=== PATIENT | male | born 1950 | race Caucasian/White ===

== ENCOUNTER 2023-06-05 08:13 | Outpatient (REF) | payer MEDICARE, SELFPAY ==
[2023-06-05 11:51] LABS: Cholesterol 190 mg/dL (<200); HDL Cholesterol 65 mg/dL (>40); LDL Cholesterol Calculated 107 mg/dL (<100); Triglycerides 90 mg/dL (<150)
[2023-06-05 13:37] LABS: Reflex LDLD? No
[2023-06-06 05:22] LABS: ~HepC Num1 0.13 S/CO (0.00-0.79); ~Hepatitis C Antibody Nonreactive (Nonreactive)
== END 2023-06-05 08:14 | disposition home or self-care (01) ==
LOC: HO.HHCL 08:13
PROVIDERS: Visit Provider Internal Medicine
DX: Z00.00 Encounter for general adult medical examination without abnormal findings (principal); I10 Essential (primary) hypertension
CPT/HCPCS: 36415; 80061; 86803

== ENCOUNTER 2024-01-23 08:35 | Outpatient (REF) | payer MEDICARE, SELFPAY ==
[2024-01-23 12:12] LABS: Estimated Average Glucose 126 mg/dL
[2024-01-23 12:20] LABS: Anion Gap 12 (12-20); Blood Urea Nitrogen 17 mg/dL (9-16); Calcium 9.9 mg/dL (8.4-10.2); Carbon Dioxide 27 mmol/L (22-29); Chloride 106 mmol/L (96-108); Cholesterol 215 mg/dL (<200); Estimated Glomerular Filt Rate > 60; Glucose Random 97 mg/dL (60-115); HDL Cholesterol 73 mg/dL (>40); LDL Cholesterol Calculated 122 mg/dL (<100); Potassium 4.2 mmol/L (3.3-5.1); Sodium 141 mmol/L (135-145); Triglycerides 102 mg/dL (<150)
== END 2024-01-23 08:36 | disposition home or self-care (01) ==
LOC: HO.HHCL 08:35
PROVIDERS: Visit Provider Pharmacist
DX: R73.03 Prediabetes (principal); E78.2 Mixed hyperlipidemia; I10 Essential (primary) hypertension
CPT/HCPCS: 36415; 80048; 80061; 83036

== ENCOUNTER 2024-10-08 09:44 | Outpatient (REF) | payer MEDICARE, SELFPAY ==
--- NOTE | ~2024-10-08 | XR_ITS ---
EXAMINATION: XR SHOULDER 2 OR MORE VIEWS LEFT HISTORY: left shoulder pain COMPARISON: There are no prior studies available for comparison. FINDINGS: Four views of the left shoulder are submitted. There is a curvilinear subchondral lucency in the humeral head with surrounding sclerosis, suspicious for avascular necrosis. There is no evidence of articular collapse. There is no fracture or dislocation. The glenohumeral and acromioclavicular joint spaces are preserved. The soft tissues are unremarkable. XR/XR shoulder LT min 2V IMPRESSION: No new suspicious for avascular necrosis of the left humeral head. This could be confirmed with MRI if indicated. Electronically signed by: Amilcar Jin MD 10/08/2024 11:44 AM MIRELA
--- NOTE | ~2024-10-08 | XR_ITS ---
EXAMINATION: XR WRIST 3 OR MORE VIEWS LEFT HISTORY: left wrist pain and swelling COMPARISON: Correlation is made with plain films of the left hand dated 12/11/2014. FINDINGS: Four views of the left wrist are submitted. Osseous mineralization is normal. There is no fracture or dislocation. The joint spaces are preserved. The soft tissues are unremarkable. XR/XR wrist LT min 3V IMPRESSION: Unremarkable examination of the left wrist. Electronically signed by: Amilcar Jin MD 10/08/2024 10:55 AM MIRELA
--- OUTSIDE RECORDS SUMMARY | 2024-10-08 10:44 | XMS_ITS | Encounter Summary ---
Author Organization [employer] [facility] Address [address] [place] [address] [address]t [place] [address] Care Team Providers Care Communications Associate Name Role Phone Don Cardoso MD Primary Care Provide r Encounter Details Date Type Department Care Team (Late st Contact Info) Description 08/19/2022 Orders Only [facility] MED[facility]INE [address] [place] [address] Don aCrdoso MD [address] [place] [address] Avascular necrosis of bones of both hips (CMS/HCC) (Primary Dx) Social History Tobacco Use Types Packs/Day Years Used Date Smoking Tobacco: Never Assessed Sex and Gender Information Value Date Recorded Sex Assigned at Male 07/18/2022 10:15 AM EDT Legal Sex Male 10:15 AM EDT Gender Identity Male 07/18/2022 10:15 AM EDT Sexual Orientation Straight 07/18/2022 10 :15 AM EDT documented as of this encounter Plan of Treatment Not on file documented as of this encounter Visit Diagnoses Diagnosis Avascular necrosis of bones of both hips (CMS/HCC)- Primary documented in this encounter Care Teams Communications Associate Relationship Specialty Start Date End Date Don Cardoso MD [address] [place] [address] PCP - General Internal Medicine 09/23/14 documented as of this encounter
--- OUTSIDE RECORDS SUMMARY | 2024-10-08 10:44 | XMS_ITS | Encounter Summary ---
Author Organization [email or web address] Address [address] [facility] 7t [place] [address] Care Team Providers Care Psychological Operations Officer Name Role Phone Don Cardoso MD Primary Care Provide r Reason for Visit * Reason Comments Pre-visit Planning SDOH screening was c ompleted on 10/26/2023 Encounter Details Date Type Department Care Team ([facility] st Contact Info) Description 09/26/2024 Patient Outreach [facility] MED[facility]INE [address] [place] [address] Don Cardoso MD [address] [place] [address] Pre-visit Planning (SDOH screening was completed on 10/26/2023) Social History Tobacco Use Types Packs/Day Years Used Date Smoking Tobacco: Never Passive Smoke Exposure: Never Smokeless Tobacco: Never Alcohol Use Standard Drinks/Week Comments Never 0 (1 standard drink = 0.6 oz pur e alcohol) Depression Answer Date Recorded Patient Health Questionnaire-9 Score 0 10/26/2023 Patient Health Questionnaire-9 Score 0 10/26/2023 Last PHQ-9: Questionnaire Data Not on file 0 10/26/2023 Housing Stability Answer Date Recorded What is your housing situation today? I have re abraham 10/26/[address] you li ve. Do you have problems with any of the following? None of the above 10/26/2023 Food Insecurity Answer Date Recorded Within the past 12 months, y ou worried that your food would run out before you got money to buy more: Never True 10/26/2023 Within the past 12 months,th e food you bought just didn't last and you didn't have enough money to get more: Never True 04/2024 Transportation Answer Date Recorded In the past 12 months, has l ack of transportation kept you from medical appts, meetings, work or from getting things needed for daily living? No 10/26/2023 Utilities Answer Date Recorded In the past 12 months, has t he electric, gas, oil or water company threatened to shut off services in your home? No 10/26/2023 Depression Answer Date Recorded Patient Health Questionnaire-2 Score 0 10/26/2023 Internet Access Answer Date Recorded Internet Access Q1 No 08/23/2024 Internet Access Q2 I do not want or need it 02/2024 Sex and Gender Information Value Date Recorded Sex Assigned at Male 07/18/2022 10:15 AM EDT Legal Sex Male 10:15 AM EDT Gender Identity Male 07/18/2022 10:15 AM EDT Sexual Orientation Straight 07/18/2022 10 :15 AM EDT documented as of this encounter Progress Notes * Yenny Singleton - 09/26/2024 12:29 PM EST GLADYS Drummond placed successful outbound call to patient for pre-visit planning. Patient name and confirmed. Patient confirms appt date and time, and has transportation arrangements. Biggest concern for appointment at this time is no concerns. Patient advised to bring to appointment a photo id and insurance card. Appropriate screenings completed in anticipation of appointment. documented in this encounter Plan of Treatment Not on file documented as of this encounter Goals Goal Patient Goal Type Associated Problems Recent Progress Patient-Stated? Author Blood Pressure < 140/90 Blood Pressure Hypertension 140/82(2024 9:24 AM EST) No Mohsen Edwards, PharmD documented as of this encounter Visit Diagnoses Not on filedocumented in this encounter Additional Health Concerns Assessment Noted Time PHQ-9 Depression Total Score: 0 10/26/19 24 9:35 AM EST documented as of this encounter Care Teams Psychological Operations Officer Relationship Specialty Start Date End Date Don Cardoso MD [address] [place] [phone] PCP - General Internal Medicine 09/23/14 documented as of this encounter
--- OUTSIDE RECORDS SUMMARY | 2024-10-08 10:44 | XMS_ITS | Encounter Summary ---
Author Organization [employer] Address [address] [facility] 7t [place] [address] Care Team Providers Care Measurement Technician Name Role Phone Don Cardoso MD Primary Care Provide r Encounter Details Date Type Department Care Team (Latest Contact Info) Description 10/08/2024 Travel Social History Tobacco Use Types Packs/Day Years Used Date Smoking Tobacco: Never Passive Smoke Exposure: Never Smokeless Tobacco: Never Alcohol Use Standard Drinks/Week Comments Never 0 (1 standard drink = 0.6 oz pur e alcohol) Depression Answer Date Recorded Patient Health Questionnaire-9 Score 1 10/08/2024 Patient Health Questionnaire-9 Score 1 10/08/2024 Last PHQ-9: Questionnaire Data Not on file 0 10/08/2024 Housing Stability Answer Date Recorded What is [...] Date Recorded Patient Health Questionnaire-2 Score 0 10/08/2024 Internet Access Answer Date Recorded Internet Access Q1 Yes 10/08/2024 Internet Access Q2 I do not want or need it 09/19 Sex and Gender Information Value Date Recorded [...] 140/82(2024 9:24 AM EST) No Mohsen Edwards, VondaD documented as of this encounter Visit Diagnoses Not on filedocumented in this encounter Additional Health Concerns Assessment Noted Time PHQ-9 Depression Total Score: 1 10/08/19 25 9:12 AM EST documented as of this encounter Care Teams Measurement Technician Relationship Specialty Start Date End Date Don Cardoso MD [address] [place] [address] PCP - General Internal Medicine 09/23/14 documented as of this encounter
--- OUTSIDE RECORDS SUMMARY | 2024-10-08 10:44 | XMS_ITS | Encounter Summary ---
Author Organization [employer] [facility] Address [address] [place] [address] 7t [place] [address] Care Team Providers Care Manager Specialty Name Role Phone Don Cardoso MD Primary Care Provide r Reason for Referral * Consultation (Routine) - Pending Review Specialty Diagnoses / Procedures Referred By Contalexander t Referred To Contact Physical Therapy Diagnoses Left wrist pain Acute pain of left shoulder Don Cardoso MD [address] [place] [address] Phone: tel: fax: Referral ID Status Reason Start Date Expiration Date Visits Requested Visits Authorized [id number] Pending Review Specialty Services Required 10/08/2024 10/08/2025 1 1 Reason for Visit * Reason Comments Hypertension Encounter Details Date Type Department Care Team (Late st Contact Info) Description 10/08/2024 9:15 AM EST Office Visit [facility] MEDICINE [address] [place], [place] [phone] Don Cardoso MD [address] [place], [place] [phone] Primary hypertension (Primary Dx); Mixed hyperlipidemia; Left wrist pain; Acute pain of left shoulder; Avascular necrosis of bone of hip, unspecified laterality (CMS/HCC); Preventative health care Social History Tobacco Use Types Packs/Day Years [...] AM EDT documented as of this encounter Last Filed Vital Signs Vital Sign Reading Time Taken Comments Blood Pressure 140/82 10/08/2024 9:24 AM EST Pulse 75 10/08/2024 9:07 AM EST Temperature 36.2 ??C (97.1 ??F) 10/08/2024 9:07 AM ES T Respiratory Rate 20 10/08/2024 9:07 AM EST Oxygen Saturation 96% 10/08/2024 9:07 AM EST Inhaled Oxygen Concentration - - Weight 103 kg (227 lb 12.8 oz) 10/08/2024 9:07 A M EST Height 170.2 cm (5' 7 ) 10/08/2024 9:07 AM EST Body Mass Index 35.68 10/08/2024 9:07 AM EST documented in this encounter Progress Notes * Don Naik MD - 10/08/2024 9:15 AM EST SUBJECTIVE Elbert Son is a 74 y.o. male who presents for Hypertension. Hypertension This is a chronic problem. Pertinent negatives include no chest pain, headaches or shortness of breath. Shoulder Pain The pain is present in the left shoulder. This is a new problem. The current episode started 1 to 4weeks ago. There has been no history of extremity trauma. The problem occurs intermittently. The problem has been gradually worsening. The pain is at a severity of 5/10. Pertinent negatives include no fever. The symptoms are aggravated by activity. He has tried nothing for the symptoms. Wrist Pain The pain is present in the left wrist. This is a new problem. The current episode started 1 to 4 weeks ago. The problem occurs intermittently. The pain is at a severity of 4/10. Pertinent negatives include no fever. The symptoms are aggravated by activity. He has tried nothing for the symptoms. Review of Systems Constitutional: Negative for fever. HENT: Negative for sore throat. Respiratory: Negative for cough and shortness of breath. Cardiovascular: Negative for chest pain. Gastrointestinal: Negative for abdominal pain. Neurological: Negative for headaches. No Known Allergies OBJECTIVE Vitals: 10/08/24 0907 10/08/24 0924 BP: (!) 180/88 140/82 BP Location: Left arm Left arm Patient Position: Sitting Sitting BP Cuff Size: Adult Pulse: 75 Resp: 20 Temp: 97.1 ??F (36.2 ??C) TempSrc: Temporal SpO2: 96% Weight: 227 lb 12.8 oz (103 kg) Height: 5' 7 (1.702 m) Physical Exam Vitals reviewed. Constitutional: Appearance: Normal appearance. HENT: Head: Normocephalic and atraumatic. Right Ear: External ear normal. Left Ear: External ear normal. Nose: Nose normal. Mouth/Throat: Mouth: Mucous membranes are moist. Eyes: Conjunctiva/sclera: Conjunctivae normal. Cardiovascular: Rate and Rhythm: Normal rate and regular rhythm. Pulmonary: Effort: Pulmonary effort is normal. Breath sounds: Normal breath sounds. Musculoskeletal: Left shoulder: Tenderness present. No swelling or deformity. Decreased range of motion. Left wrist: Swelling and tenderness present. Decreased range of motion. Skin: General: Skin is warm. Neurological: Mental Status: He is alert. Mental status is at baseline. Assessment/Plan Problem List Items Addressed This Visit Hypertension - Primary Patient here for a follow up BP controlled He is on a regimen of: Enalapril 20 mg po BID, Norvasc 7.5 mg po daily (pt did not tolerated the 10mg due to leg edema) and Toprol XL 25 mg po daily Plan: Continue current regimen, discussed need to loose weight f/u 4 months Most recent electrolytes, Bun and Creatinine done on: 01/23/2024 were wnl. patient advised to adhere to a low sodium diet, encouraged about medication compliance, counseled about weight loss. Relevant Orders Comprehensive Metabolic Panel Mixed hyperlipidemia Pt here for a routine f/u visit Most recent lipid profile from: Lab Results Component Value Date TRIG 102 01/23/2024 TRIG 90 06/05/2023 CHOL 215 (H) 01/23/2024 CHOL 190 06/05/2023 LDLCHOLCAL 122 (H) 01/23/2024 LDLCHOLCAL 107 (H) 06/05/2023 HDL 73 01/23/2024 HDL 65 06/05/2023 Currently not on a regimen. In the past he was on Lipitor but this was Discontinued due to elevatedLFT'S. Previously he had been able to maintain adequate levels on DIET alone. Pt would like to continue with diet alone. For now will continue with diet alone. advised to try to adhere to a low cholesterol diet, counseled and educated about diet and exercise,Patient encouraged to come up with a personal goal for weight loss. Relevant Orders Lipid Panel, Standard Left wrist pain New onset , in the absence of any trauma On exam, there is decreased ROM on active movement Mild tenderness to palpation Plan: Pain control, Plain films, PT eval Follow up if no improvement Relevant Orders XR Wrist 3+ Views Left CBC auto differential Referral to Physical Therapy Acute pain of left shoulder New onset , in the absence of any trauma On exam, there is decreased ROM on active movement Mild tenderness AC joint Plan: Pain control, Plain films, PT eval Follow up if no improvement Relevant Orders XR Shoulder 2+ Views Left Referral to Physical Therapy Avascular necrosis of bone of hip (CMS/HCC) Pt was last seen by his drug safety specialist Dr Bernstein on July 12 2012. 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 We once again discussed the importance of posterior hip dislocation precautions and the importance of antibiotic prophylaxis should hehave any dental work done or any invasive procedure. Preventative health care PSA 2021: Normal. Will repeat Colonoscopy: Normal : 07/09/2010 Dr Ag Repeat 03/31/2016 for Hx of Tubular adenomas Normal again Dr Ag recommended 10 yr follow up, from now on Relevant Orders PSA, Screen documented in this encounter Miscellaneous Notes * Assessment & Plan Note - Don Naik MD - 10/08/2024 10:11 AM EST Associated Problem(s): Left wrist pain New onset , in the absence of any trauma On exam, there is decreased ROM on active movement Mild tenderness to palpation Plan: Pain control, Plain films, PT eval Follow up if no improvement * Assessment & Plan Note - Don Naik MD - 10/08/2024 10:11 AM EST Associated Problem(s): Acute pain of left shoulder New onset , in the absence of any trauma On exam, there is decreased ROM on active movement Mild tenderness AC joint Plan: Pain control, Plain films, PT eval Follow up if no improvement * Assessment & Plan Note - Don Naik MD - 10/08/2024 9:26 AM EST Associated Problem(s): Preventative health care PSA 2021: Normal. Will repeat Colonoscopy: Normal : 07/09/2010 Dr Ag Repeat 03/31/2016 for Hx of Tubular adenomas Normal again Dr Ag recommended 10 yr follow up, from now on * Assessment & Plan Note - Don Naik MD - 10/08/2024 9:20 AM EST Associated Problem(s): Avascular necrosis of bone of hip (CMS/HCC) Pt was last seen by his drug safety specialist Dr Bernstein on July 12 2012. 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 We once again discussed the importance of posterior hip dislocation precautions and the importance of antibiotic prophylaxis should hehave any dental work done or any invasive procedure. * Assessment & Plan Note - Don Naik MD - 10/08/2024 9:19 AM EST Associated Problem(s): Mixed hyperlipidemia Pt here for a routine f/u visit Most recent lipid profile from: Lab Results Component Value Date TRIG 102 01/23/2024 TRIG 90 06/05/2023 CHOL 215 (H) 01/23/2024 CHOL 190 06/05/2023 LDLCHOLCAL 122 (H) 01/23/2024 LDLCHOLCAL 107 (H) 06/05/2023 HDL 73 01/23/2024 HDL 65 06/05/2023 Currently not on a regimen. In the past he was on Lipitor but this was Discontinued due to elevatedLFT'S. Previously he had been able to maintain adequate levels on DIET alone. Pt would like to continue with diet alone. For now will continue with diet alone. advised to try to adhere to a low cholesterol diet, counseled and educated about diet and exercise,Patient encouraged to come up with a personal goal for weight loss. * Assessment & Plan Note - Don Naik MD - 10/08/2024 9:18 AM EST Associated Problem(s): Hypertension Patient here for a follow up BP controlled He is on a regimen of: Enalapril 20 mg po BID, Norvasc 7.5 mg po daily (pt did not tolerated the 10mg due to leg edema) and Toprol XL 25 mg po daily Plan: Continue current regimen, discussed need to loose weight f/u 4 months Most recent electrolytes, Bun and Creatinine done on: 01/23/2024 were wnl. patient advised to adhere to a low sodium diet, encouraged about medication compliance, counseled about weight loss. documented in this encounter Plan of Treatment Scheduled Orders Name Type Priority Associated Diagnoses Orde r Schedule PSA, Screen Lab Routine Preventative health care Ordered: 10/08/2024 Lipid Panel, Standard Lab Routine Mixed hyperlipidemia Ordered: 10/08/2024 Comprehensive Metabolic Panel Lab Routine Primary hypertension Ordered: 10/08/2024 XR Wrist 3+ Views Left Imaging Routine Left wrist pain Expected: 10/08/2024, Expires: 10/08/2025 CBC auto differential Lab Routine Left wrist pain Expected: 10/08/2024 (Approximate), Expires: 10/08/2025 XR Shoulder 2+ Views Left Imaging Routine Acute pain of left shoulder Expected: 10/08/2024, Expires: 10/08/2025 Scheduled Referrals Name Type Priority Associated Diagnoses Orde r Schedule Referral to Physical Therapy Outpatient Referral Routine Left wrist pain Acute pain of left shoulder Expected: 10/08/2024 (Approximate), Expires: 10/08/2025 documented as of this encounter Goals Goal Patient Goal Type Associated Problems Recent Progress Patient-Stated? Author Blood Pressure < 140/90 Blood Pressure Hypertension 140/82(2024 9:24 AM EST) No Mohsen Edwards, Deborah documented as of this encounter Visit Diagnoses Diagnosis Primary hypertension- Primary Unspecified essential hypertension Mixed hyperlipidemia Left wrist pain Pain in joint, forearm Acute pain of left shoulder Avascular necrosis of bone of hip, unspecified laterality (CMS/HCC) Preventative health care Routine general medical examination at a health care facility documented in this encounter Additional Health Concerns Assessment Noted Time PHQ-9 Depression Total Score: 1 10/08/19 25 9:12 AM EST documented as of this encounter Care Teams Manager Specialty Relationship Specialty Start Date End Date Don Cardoso MD [address] [place] [address] PCP - General Internal Medicine 09/23/14 documented as of this encounter
--- OUTSIDE RECORDS SUMMARY | 2024-10-08 10:44 | XMS_ITS | Clinical Summary ---
Author Organization [employer] Address [address] [place] [address] Care Team Providers Care Transitional Nurse Name Role Phone Don Cardoso MD Primary Care Provide r Allergies No known active allergies Medications ketorolac (Acular) 0.5 % ophthalmic solution 2 Active metoprolol succinate XL (Toprol-XL) 25 MG 24 hr tablet TOME SUHAS TABLETA TODOS LOS DE LEON 90 tablet 3 4 Active enalapril (Vasotec) 20 MG tablet Take 1 tablet (20 mg) by mouth every 12 (twelve) hours. 180 tablet 3 4 01/22/20 25 Active amLODIPine (Norvasc) 2.5 MG tablet TOME SUHAS TABLETA TODOS LOS DE LEON 90 tablet 3 4 Active amLODIPine (Norvasc) 5 MG tabletIndications :Primary hypertension TOME SUHAS TABLETA TODOS LOS DE LEON 90 tablet 3 4 Active terazosin (Hytrin) 1 MG capsuleIndication s:Benign prostatic hyperplasia with urinary frequency TOME SUHAS CAPSULA TODOS LOS DE LEON AL ACOSTARSE 90 capsule 3 4 Active omeprazole (PriLOSEC) [address] capsuleIndication s:Pain TOME 1 CAPSULA TODOS LOS DE LEON BEFORE A MEAL 90 capsule 3 4 Active Active Problems Problem Noted Date Diagnosed Date Left wrist pain 10/08/2024 Assessment & Plan (10/08/2024 10:11 AM EST): New onset , in the absence of any trauma On exam, there is decreased ROM on active movement Mild tenderness to palpation Plan: Pain control, Plain films, PT eval Follow up if no improvement Acute pain of left shoulder 10/08/2024 Assessment & Plan (10/08/2024 10:11 AM EST): New onset , in the absence of any trauma On exam, there is decreased ROM on active movement Mild tenderness AC joint Plan: Pain control, Plain films, PT eval Follow up if no improvement Prediabetes 02/02/2023 Assessment & Plan (01/22/2024 11:07 AM EDT): - Due for A1c check; ordered to lab Assessment & Plan (02/02/2023 9:09 AM EDT): FBS January 24, 2023 104. Hgb A1c 6.3 Patient has been counseled and educated about diet and exercise. Personal goal of weight loss discussed Class 1 obesity due to exces s calories with serious comorbidity and body mass index (BMI) of 33.0 to 33.9 in adult 10/11/2022 Assessment & Plan (03/05/2024 9:18 AM EDT): Patient gained 5 lbs He has been Patient has been counseled and educated about diet and exercise. Personal goal of weight loss discussed Patient has comorbidity of: HTN Assessment & Plan (10/26/2023 9:46 AM EST): Patient gained 10 lbs He has been Patient has been counseled and educated about diet and exercise. Personal goal of weight loss discussedPatient has comorbidity of: HTN Assessment & Plan (02/02/2023 9:09 AM EDT): Patient has been Patient has been counseled and educated about diet and exercise. Personal goal of weight loss discussedPatient has comorbidity of: HTN Assessment & Plan (10/11/2022 9:15 AM EST): Patient has been Patient has been counseled and educated about diet and exercise. Personal goal of weight loss discussed Chronic low back pain 10/10/2022 Assessment & Plan (10/10/2022 9:07 PM EST): LBP unchanged Last MRI of the LS spine on 11/22/2017 showed: At L3-L4, a right lateral disc protrusion contributes to moderate to severe right foraminal stenosis with compression of the exiting right L3 nerve root. - At L4-L5, multifactorial degenerative changes result in moderate to severe bilateral foraminal stenosis that is greater on the left side with mass effect on the exiting left greater than right L4 nerve roots. Pt previously declined PT or steroid injections, also declined Neurosurgical evaluation I recommended to Continue Tramadol 50 mg po q 6 hrs prn. Discussed with pt potential risk for addiction. Pt verbalizes understanding Benign prostatic hyperplasia with urinary freque ncy 10/10/2022 Assessment & Plan (10/10/2022 9:13 PM EST): Pt with previous c/o of nocturia, dribbling. rectal exam showed a mildly enlarged prostate, likely due to BPH Started on Hytrin 1 mg po daily with good results. PSA 02/28/2022 [facility] health care 10/10/2022 Assessment & Plan (10/08/2024 9:26 AM EST): PSA 2021: Normal. Will repeat Colonoscopy: Normal : 07/09/2010 Dr Ag Repeat 03/31/2016 for Hx of Tubular adenomas Normal again Dr Ag recommended 10 yr follow up, from now on Assessment & Plan (06/01/2023 9:12 AM EDT): Colonoscopy: Normal : 07/09/2010 Dr Ag Repeat 03/31/2016 for Hx of Tubular adenomas Normal again Dr Ag recommended 10 yr follow up, from now on Assessment & Plan (10/10/2022 9:18 PM EST): Colonoscopy: Normal : 07/09/2010 Dr Ag Repeat 03/31/2016 for Hx of Tubular adenomas Normal again Dr Ag recommended 10 yr follow up, from now on Anemia 06/11/2012 Avascular necrosis of bone of hip 06/11/2012 Assessment & Plan (10/08/2024 9:20 AM EST): Pt was last seen by his medicare specialist Dr Bernstein on July 12 2012. 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 We once again discussed the importance of posterior hip dislocation precautions and the importance of antibiotic prophylaxis should he have any dental work done or any invasive procedure. Assessment & Plan (10/26/2023 9:37 AM EST): Pt was last seen by his medicare specialist Dr Bernstein on July 12 2012. 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 We once again discussed the importance of posterior hip dislocation precautions and the importance of antibiotic prophylaxis should he have any dental work done or any invasive procedure. Assessment & Plan (10/10/2022 9:09 PM EST): Pt was last seen by his medicare specialist Dr Bernstein on July 12 2012. 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 We once again discussed the importance of posterior hip dislocation precautions and the importance of antibiotic prophylaxis should he have any dental work done or any invasive procedure. Carpal tunnel syndrome 06/11/2012 Hypertension 06/11/2012 Overview (01/22/2024): Pharmacotherapy: (Updated 01/22/24) - Amlodipine 5mg + 2.5mg daily (TDD: 7mg) - Enalapril 20mg BID - Metoprolol XL 25mg daily - Terazosin 1mg Nightly (for urinary incontinence) History: (Updated 01/22/24) Caution on Amlodipine dose >7.5mg due to history of peripheral edema. Co- morbidity of obesity. He is generally active in the morning and walks daily. HR is on lower side so caution increase on metoprolol dose. BP is at goal with current treatment plan. Assessment & Plan (10/08/2024 9:18 AM EST): Patient here for a follow up BP controlled He is on a regimen of: Enalapril 20 mg po BID, Norvasc 7.5 mg po daily (pt did not tolerated the 10 mg due to leg edema) and Toprol XL 25 mg po daily Plan: Continue current regimen, discussed need to loose weight f/u 4 months Most recent electrolytes, Bun and Creatinine done on: 01/23/2024 were wnl. patient advised to adhere to a low sodium diet, encouraged about medication compliance, counseled about weight loss. Assessment & Plan (03/05/2024 9:10 AM EDT): Patient here for a follow up BP controlled He is on a regimen of: Enalapril 20 mg po BID, Norvasc 7.5 mg po daily (pt did not tolerated the 10 mg due to leg edema) and Toprol XL 25 mg po daily Plan: Continue current regimen, discussed need to loose weight f/u 4 months Most recent electrolytes, Bun and Creatinine done on: 01/23/2024 were wnl. patient advised to adhere to a low sodium diet, encouraged about medication compliance, counseled about weight loss. Assessment & Plan (01/22/2024 11:06 AM EDT): Assessment: - BP is at goal of less than 140/90 per JNC8 guidelines - BMP due for repeat Plan/ Recommendations: - Continue with current therapy and monitoring - F/U in 1 year as requested by patient Monitoring: Potassium (mmol/L) Date Value 01/24/2023 4.5 BP Readings from Last 2 Encounters: 01/22/24 130/70 10/26/23 140/80 Assessment & Plan (10/26/2023 9:37 AM EST): Patient here for a follow up BP controlled He is on a regimen of: Enalapril 20 mg po BID, Norvasc 7.5 mg po daily (pt did not tolerated the 10 mg due to leg edema) and Toprol XL 25 mg po daily Plan: Continue current regimen, discussed need to loose weight f/u 4 months Most recent electrolytes, Bun and Creatinine done on: 01/24/2023 were wnl. patient advised to adhere to a low sodium diet, encouraged about medication compliance, counseled about weight loss. Assessment & Plan (06/01/2023 9:08 AM EDT): Patient here for a follow up BP controlled per his report He is on a regimen of: Enalapril 20 mg po BID, Norvasc 7.5 mg po daily (pt did not tolerated the 10 mg due to leg edema) and Toprol XL 25 mg po daily Plan: Continue current regimen, discussed need to loose weight f/u 4 months Most recent electrolytes, Bun and Creatinine done on: 01/24/2023 were wnl. patient advised to adhere to a low sodium diet, encouraged about medication compliance, counseled about weight loss. Assessment & Plan (02/02/2023 9:08 AM EDT): Televisit BP controlled per his report He is on a regimen of: Enalapril 20 mg po BID, Norvasc 7.5 mg po daily (pt did not tolerated the 10 mg due to leg edema) and Toprol XL 25 mg po daily Plan: Continue current regimen, discussed need to loose weight f/u 4 months Most recent electrolytes, Bun and Creatinine done on: 08/01/2022 were wnl. patient advised to adhere to a low sodium diet, encouraged about medication compliance, counseled about weight loss. Assessment & Plan (01/23/2023 10:38 AM EDT): - BP is at goal of less than 140/90 per JNC8 guidelines - Continue with current therapy Assessment & Plan (10/11/2022 9:29 AM EST): Pt is here for a f/u BP today is elevated He is on a regimen of: Vasotec 20 mg po BID and Norvasc 7.5 mg po daily (pt did not tolerated the 10 mg due to leg edema) and Toprol XL 25 mg po daily Pt tells me at home his BP is normal with systolic in the 120s Plan: Continue current regimen, discussed need to loose weight f/u 4 months Most recent electrolytes, Bun and Creatinine done on: 08/01/2022 were wnl. patient advised to adhere to a low sodium diet, encouraged about medication compliance, counseled about weight loss. Mixed hyperlipidemia 06/11/2012 Overview (01/22/2024): Pharmacotherapy: (Updated 01/22/24) None History: (Updated 01/22/24) Used statin in past but was stopped due to elevated LFTs. Lipids are within goal, managed by diet alone. Assessment & Plan (10/08/2024 9:19 AM EST): Pt here for a routine f/u visit Most recent lipid profile from: Lab Results Component Value Date TRIG 102 01/23/2024 TRIG 90 06/05/2023 CHOL 215 (H) 01/23/2024 CHOL 190 06/05/2023 LDLCHOLCAL 122 (H) 01/23/2024 LDLCHOLCAL 107 (H) 06/05/2023 HDL 73 01/23/2024 HDL 65 06/05/2023 Currently not on a regimen. In the past he was on Lipitor but this was Discontinued due to elevated LFT'S. Previously he had been able to maintain adequate levels on DIET alone. Pt would like to continue with diet alone. For now will continue with diet alone. advised to try to adhere to a low cholesterol diet, counseled and educated about diet and exercise, Patient encouraged to come up with a personal goal for weight loss. Assessment & Plan (01/22/2024 11:11 AM EDT): Assessment: - Lipids are at goal per ADA guidelines - Lipid panel due for re-check Plan: - Continue with current monitoring plan - Lipid panel ordered Monitoring: LDL Cholesterol (mg/dL (calc)) Date Value 08/01/2022 121 (H) HDL Cholesterol (mg/dL) Date Value 06/05/2023 65 Cholesterol, Total (mg/dL) Date Value 08/01/2022 222 (H) Triglycerides (mg/dL) Date Value 06/05/2023 90 Assessment & Plan (10/26/2023 9:39 AM EST): Pt here for a routine f/u visit Most recent lipid profile from: 06/05/2023 Showed Component Ref Range & Units 4 mo ago 1 yr ago 2 yr ago 3 yr ago Triglycerides <150 mg/dL 90 116 100 102 Comment: Desirable Triglyceride: ? less than 150 mg/dLBorderline High Triglyceride ??150-199 mg/dLHigh Triglyceride: ?200-499 mg/dLVery High Triglyceride: ? greater than or equal to ?5OO mg/dL Cholesterol <200 mg/dL 190 Comment: Desirable Cholesterol: ?less than 200 mg/dLBorderline High Cholesterol: ??200-239 mg/dLHigh Cholesterol: ? greater than 239 mg/dL LDL Cholesterol Calculated <100 mg/dL 107??High?? Comment: Desirable LDL: ? less than 100 mg/dLNear Optimal/Above Optimal LDL: ??110-129 mg/dLBorderline High LDL: ? 130-159 mg/dLHigh LDL: ?160-189 mg/dLVery High LDL: ? greater than or equal to ? 190 mg/dL HDL Cholesterol >40 mg/dL 65 Currently not on a regimen. In the past he was on Lipitor but this was Discontinued due to elevated LFT'S. Previously he had been able to maintain adequate levels on DIET alone. Pt would like to continue with diet alone. For now will continue with diet alone. advised to try to adhere to a low cholesterol diet, counseled and educated about diet and exercise, Patient encouraged to come up with a personal goal for weight loss. Assessment & Plan (06/01/2023 9:11 AM EDT): Pt here for a routine f/u visit Most recent lipid profile from: 08/01/2022 showed a total cholesterol of: 222 triglycerides of: 116 HDL of: 79 and LDL of: 121 Currently not on a regimen. In the past he was on Lipitor but this was Discontinued due to elevated LFT'S. Previously he had been able to maintain adequate levels on DIET alone. Pt would like to continue with diet alone. For now will continue with diet alone. Will repeat Lipid profile advised to try to adhere to a low cholesterol diet, counseled and educated about diet and exercise, Patient encouraged to come up with a personal goal for weight loss. Assessment & Plan (10/10/2022 9:16 PM EST): Pt here for a routine f/u visit Most recent lipid profile from: 08/01/2022 showed a total cholesterol of: 222 triglycerides of: 116 HDL of: 79 and LDL of: 121 Currently not on a regimen. In the past he was on Lipitor but this was Discontinued due to elevated LFT'S. Previously he had been able to maintain adequate levels on DIET alone. Pt would like to continue with diet alone. For now will continue with diet alone advised to try to adhere to a low cholesterol diet, counseled and educated about diet and exercise, Patient encouraged to come up with a personal goal for weight loss. Osteoarthritis of ankle 06/11/2012 Encounters Date Type Department Care Team Description 10/08/2024 9:15 AM EST Office Visit [facility] [place] [address] Don Cardoso MD Primary hypertension (Primary Dx); Mixed hyperlipidemia; Left wrist pain; Acute pain of left shoulder; Avascular necrosis of bone of hip, unspecified laterality ([facility]/HCC); Preventative health care 10/08/2024 Travel 09/26/2024 Patient Outreach [facility] [place] [address] Don Cardoso MD Pre-visit Planning ([facility] screening was completed on 10/26/2023) 09/25/2024 Telephone [facility] [address] Don Cardoso MD Chart Prep 08/28/2024 Telephone [facility] [address] Don Cardoso MD Chart Prep 08/23/2024 Patient Outreach [facility] [place] [address] Don Cardoso MD Pre-visit Planning ([facility] screening was completed on 10/26/2023) from Last 3 Months Immunizations Name Administration Dates Next Due Influenza High-dose Quadriva lent Preservative Free 06/01/2023,06/28/2022,07/09/2021,06/26 Influenza injectable quadriv alent IIV4 with preservative 07/18/2016,07/02/2015 Influenza, High Dose Seasona l, Preservative Free 11/26/2019,06/21/2018,05/28/2017 Influenza, IIV3, injectable 05/09/2011 Influenza, Split (incl. anibal fied surface antigen) 07/12/2013,06/11/2012 Pfizer Covid-19 Vaccine 12+ 01/11/2022,,12/09/2020 Pfizer Covid-19 Vaccine 12+ Bivalent 08/09/2022 Pfizer Covid-19 Vaccine 12+ devendra-sucrose (Mccoy Cap) 01/11/2022,12/09/2020 Pneumococcal Conjugate PCV 13 07/02/2015 Pneumococcal Polysaccharide PPSV23 12/28/2017, TD (adult), 2 Lf tetanus tox oid, preservative free, adsorbed 03/05/2003 Td (adult), 5 Lf tetanus tox oid, preservative free, adsorbed 04/30/2013 Tdap 03/17/2016 Zoster, Recombinant 04/13/2020,11/26/2019 Zoster, live 09/23/2014 Family History Relation Name Status Comments Father Glaucoma Social History Tobacco Use Types Packs/Day Years Used Date Smoking Tobacco: Never Passive Smoke Exposure: Never Smokeless Tobacco: Never Tobacco Cessation:Counseling Given: Yes Alcohol Use Standard Drinks/Week Comments Never 0 [...] Orientation Straight 07/18/2022 10 :15 AM EDT Last Filed Vital Signs Vital Sign Reading [...] Mass Index 35.68 10/08/2024 9:07 AM EST Plan of Treatment Health Maintenance Due Date Last Done Comments CT Colonography 1950 FIT DNA/Cologuard 1950 FIT 1950 FOBT 1950 Sigmoidoscopy 1950 COVID-19 Vaccine ( season) 2024 08/09/2022, 01/11/2022, 01/11/2022, Additional history exists Influenza Vaccine (#1) 2024 , 06/28/2022, 07/09/2021, Additional history exists SDOH Screening 10/26/2024 10/26/2023 RSV Patients and Patients Aged 60 years or older (1 - 1-dose 75+ series) 2025 Diabetes: Hemoglobin A1C 01/22/2025 01/23/2024, 05/0 05/2023 Alcohol/Substance Use Screening 10/08/2025 10/08/2024 Depression Screening 10/08/2025 10/08/2024, 10/08/19 Tobacco Screening 10/08/2025 10/08/2024 DTaP/Tdap/Td Vaccines (2 - Td or Tdap) 03/17/2026 03/17/2016, 04/30/2013, 03/05/2003 Colonoscopy 03/31/2026 03/31/2016 Colorectal Cancer Screening 03/31/2026 Lipid Panel 01/22/2029 01/23/2024, 05/19, 08/01/2022, Additional history exists Pneumococcal Vaccine: 65+ Years Completed 12/28/2017, 07/02/2015, 06/11/2012 Zoster Vaccines Completed 04/13/2020, 11/16, 09/23/2014 Hepatitis C Screening Completed 06/05/2023 HIB Vaccines Aged Out No longer eligi ble based on patient's age to complete this topic HPV Vaccines Aged Out No longer eligi ble based on patient's age to complete this topic Hepatitis A Vaccines Aged Out No long er eligible based on patient's age to complete this topic Hepatitis B Vaccines Aged Out No long er eligible based on patient's age to complete this topic IPV Vaccines Aged Out No longer eligi ble based on patient's age to complete this topic Meningococcal Vaccine Aged Out No evin marshall eligible based on patient's age to complete this topic RSV under 20 months Aged Out No longe r eligible based on patient's age to complete this topic Rotavirus Vaccines Aged Out No longer eligible based on patient's age to complete this topic Goals Goal Patient Goal Type Associated Problems Recent Progress Patient-Stated? Author Blood Pressure < 140/90 Blood Pressure Hypertension 140/82(2024 9:24 AM EST) No Mohsen Edwards, Deborah Procedures Procedure Name Priority Date/Time Associated Diagnosis Comments HEMOGLOBIN A1C Routine 01/23/2024 8:47 AM EDT Prediabetes LIPID PANEL, STANDARD Routine 01/23/2024 8:47 AM EDT Mixed hyperlipidemia HEPATITIS C AB W/REFL TO HCV RNA, QN, PCR Routine 06/05/2023 8:16 AM EDT Preventative health care HM COLONOSCOPY Routine 03/31/2016 from Last 3 Months or Most Recently Relevant to Health Maintenance Results * Hemoglobin A1c (01/23/2024 8:47 AM EDT) Hemoglobin A1c 6.0 <6.0 % [facility] Comment:Hemoglobin A1C Refer ence Range Adults: 4.8 - 6.0 % Non diabetic: < 6.0 % Goal: < 7.0 %Additional Action Suggested: > 8.0 %Note: Hemoglobin A1c results are invalid for patients with abnormal amounts of HbF. Blood transfusions may impact the HbA1c concentration in the patient sample. Estimated Average Glucose 126 mg/dL [facility] Comment:eAG = Estimated ave rage glucose which is %A1C expressed asaverage glucose, using the formula of the U9Z-[id number] Glucose study (ADAG), Diabetes Care, Vol.31,#8,Apr. 2007 Blood Venous blood specimen / Unknown 01/23/2024 8:47 AM EDT 01/23/2024 11:39 AM EDT us Mohsen Edwards PharmRadha LAB BLOOD ORDERABLES Augustina cotton Result [facility] [address] [place] [phone] * (ABNORMAL) Lipid Panel, Standard (01/23/2024 8:47 AM EDT) Triglycerides 102 <150 mg/dL [facility] Comment:Desirable Triglyceri de: less than 150 mg/dLBorderline High Triglyceride 150-199 mg/dLHigh Triglyceride: 200-499 mg/dLVery High Triglyceride: greater than or equal to 5OO mg/dL Cholesterol 215(H) <200 mg/dL [facility] Comment:Desirable Cholestero l: less than 200 mg/dLBorderline High Cholesterol: 200-239 mg/dLHigh Cholesterol: greater than 239 mg/dL LDL Cholesterol Calculated 122(H) <100 mg/dL [facility] Comment:Desirable LDL: less than 100 mg/dLNear Optimal/Above Optimal LDL: 110- 129 mg/dLBorderline High LDL: 130-159 mg/dLHigh LDL: 160-189 mg/dLVery High LDL: greater than or equal to 190 mg/dL HDL Cholesterol 73 >40 mg/dL [facility] Comment:Desirable HDL: great er than 40 mg/dL Note: This HDL assay may give artificially low results in patients with liver disease. Blood Venous blood specimen / Unknown 01/23/2024 8:47 AM EDT 01/23/2024 11:41 AM EDT us Mohsen FerrariD LAB BLOOD ORDERABLES Augustina l Result Performing Organization Address [facility]/ZIP Co de Phone Number [facility] [address] [place] [phone] * Hepatitis C Antibody with Reflex to HCV, RNA, Quantitative, Real-Time PCR (06/05/2023 8:16 AM EDT) Hepatitis C Antibody Nonreactive Nonreactive [facility] Comment:Antibodies to HCV no t detected; does not exclude early acuteHCV infection. Blood Venous blood specimen / Unknown 06/05/2023 8:16 AM EDT 06/05/2023 11:03 AM EDT us Don Naik MD LAB BLOOD ORDERABLES Final Result Performing Organization Address City/[facility]/ZIP Co de Phone Number [facility] [address] [place] [phone] * Colonoscopy (03/31/2016) Colonoscopy Normal Normal 03/31/2016 Tonya Raza - 03/31/2016 10:36 AM EDT Recommended 10 year follow up ( see scanned notes) us Historical Provider HEALTH MAINTENANCE Edited Result - Final from Last 3 Months or Most Recently Relevant to Health Maintenance Insurance [facility] Care Teams Transitional Nurse Relationship Specialty Start Date End Date Don Cardoso MD [address] [place] [address] PCP - General Internal Medicine 09/23/14
--- OUTSIDE RECORDS SUMMARY | 2024-10-08 10:44 | XMS_ITS | Encounter Summary ---
Author Organization [employer] Address [address] [facility] 7t [place] [address] Care Team Providers Care Systems Support Officer Name Role Phone Don Cardoso MD Primary Care Provide r Encounter Details Date Type Department Care Team (Late st Contact Info) Description 01/20/2023 Abstract [facility] [address] [place], [place] [phone] Don Cardoso MD [address] [place] [address] Social History Tobacco Use Types Packs/Day Years Used Date Smoking Tobacco: Never Smokeless Tobacco: Never Alcohol Use Standard Drinks/Week Comments Never 0 (1 standard drink = 0.6 oz pur e alcohol) Depression Answer Date Recorded Patient Health Questionnaire-9 Score 0 10/11/2022 Depression Answer Date Recorded Patient Health Questionnaire-2 Score 0 10/11/2022 Sex and Gender Information Value Date Recorded Sex Assigned at Male 07/18/2022 10:15 AM EDT Legal Sex Male 10:15 AM EDT Gender Identity Male 07/18/2022 10:15 AM EDT Sexual Orientation Straight 07/18/2022 10 :15 AM EDT COVID-19 Exposure Response Date Recorded In the last 10 days, have yo u been in contact with someone who was confirmed or suspected to have Coronavirus/COVID-19? No / Unsure 01/23/2023 10:21 AM EDT documented as of this encounter Plan of Treatment Not on file documented as of this encounter Goals Goal Patient Goal Type Associated Problems Recent Progress Patient-Stated? Author Blood Pressure < 140/90 Blood Pressure Hypertension 140/82(2024 9:24 AM EST) No Mohsen Edwards, Deborah documented as of this encounter Procedures Procedure Name Priority Date/Time Associated Diagnosis Comments COLONOSCOPY Routine 03/31/2016 documented in this encounter Results * Colonoscopy (03/31/2016) Colonoscopy Normal Normal 03/31/2016 Narrative Sada Tonya - 03/31/2016 10:36 AM EDT Recommended 10 year follow up ( see scanned notes) us Historical Provider HEALTH MAINTENANCE Edited Result - Final documented in this encounter Visit Diagnoses Not on filedocumented in this encounter Additional Health Concerns Assessment Noted Time PHQ-9 Depression Total Score: 0 10/11/19 23 9:18 AM EST documented as of this encounter Care Teams Systems Support Officer Relationship Specialty Start Date End Date Don Cardoso MD [address] [place] [id number] PCP - General Internal Medicine 09/23/14 documented as of this encounter
--- OUTSIDE RECORDS SUMMARY | 2024-10-08 10:44 | XMS_ITS | Encounter Summary ---
Author Organization [employer] Address [address] [facility] 7t [place] [address] Care Team Providers Care Fertilizing Machine Operator Name Role Phone Don Cardoso MD Primary Care Provide r Reason for Visit * Reason Onset Date Comments Chart Prep 09/25/2024 Encounter Details Date Type Department Care Team ([facility] st Contact Info) Description 09/25/2024 Telephone [facility] [address] [place] [address] Don Cardoso MD [address] [place] [address] Chart Prep Social History Tobacco Use Types Packs/Day Years [...] AM EDT documented as of this encounter Miscellaneous Notes * Telephone Encounter - Rona Sierra [place] - 09/25/2024 3:11 PM EST Chart Prep Labs: not applicable Images: not applicable Vaccines due: Covid Due and Flu Due Referrals: Not Applicable Screenings: Not Applicable Overdue care gaps: Sbirt, SDOH, PHQ-9, and Oral Health Chart prep for upcoming appt with Dr.Esparza parkinson. LB documented in this encounter Plan of Treatment [...] documented as of this encounter Care Teams Fertilizing Machine Operator Relationship Specialty Start Date End Date Don Cardoso MD [address] [place] [phone] PCP - General Internal Medicine 09/23/14 documented as of this encounter
== END 2024-10-08 09:45 | disposition home or self-care (01) ==
LOC: HO.HHCX 09:44
PROVIDERS: Visit Provider Internal Medicine
DX: M25.532 Pain in left wrist (principal); M25.512 Pain in left shoulder
CPT/HCPCS: 73030; 73110

== ENCOUNTER → 2024-10-08 09:44 | Outpatient (BNV) | payer MEDICARE, SELFPAY | PROVIDERS: Visit Provider Radiology Diagnostic Radiology | DX: M25.512 Pain in left shoulder (principal); M25.532 Pain in left wrist | CPT/HCPCS: 73030; 73110 ==

== ENCOUNTER → 2024-10-22 07:26 | Outpatient (BNV) | payer MEDICARE, SELFPAY | PROVIDERS: Visit Provider Radiology Diagnostic Radiology | DX: M25.512 Pain in left shoulder (principal) | CPT/HCPCS: 73221 ==

== ENCOUNTER 2024-10-23 08:00 | Outpatient (REF) | payer MEDICARE, SELFPAY ==
--- OUTSIDE RECORDS SUMMARY | 2024-10-23 08:02 | XMS_ITS | Encounter Summary ---
Author Organization [employer] Address [address] [facility] 7t [place] [address] Care Team Providers Care Crane Crew Supervisor Name Role Phone Don Cardoso MD Primary Care Provide r Encounter Details Date Type Department Care Team (Late st Contact Info) Description 01/20/2023 Abstract [facility]INE [address] [place], [place] [phone] Don Cardoso MD [address] [place] [address] Social History Tobacco Use Types Packs/Day Years [...] documented as of this encounter Care Teams Crane Crew Supervisor Relationship Specialty Start Date End Date Don Cardoso MD [address] [place] [phone] PCP - General Internal Medicine 09/23/14 documented as of this encounter
--- OUTSIDE RECORDS SUMMARY | 2024-10-23 08:02 | XMS_ITS | Encounter Summary ---
Author Organization [employer] Address [address] [facility] 7t [place] [address] Care Team Providers Care Process Chemist Name Role Phone Don Cardoso MD Primary Care Provide r Reason for Visit * Reason Comments Pre-visit Planning SDOH screening was c ompleted on 10/26/2023 Encounter Details Date Type Department Care Team ([facility] st Contact Info) Description 09/26/2024 Patient Outreach [facility] [address] [place] [address] Don Cardoso MD [address] [place] [address] Pre-visit Planning (SDOH screening was completed on [...] documented as of this encounter Care Teams Process Chemist Relationship Specialty Start Date End Date Don Cardoso MD [address] [place] [id number] PCP - General Internal Medicine 09/23/14 documented as of this encounter
--- OUTSIDE RECORDS SUMMARY | 2024-10-23 08:02 | XMS_ITS | Encounter Summary ---
Author Organization [employer] Address [address] [place] [address] 7t [place] [address] Care Team Providers Care Cannon Fire Direction Specialist Name Role Phone Don Cardoso MD Primary Care Provide r Reason for Referral * Consultation (Routine) - Authorized Specialty Diagnoses / Procedures Referred By Kandi jacobo Referred To Contact Orthopaedic Surgery Diagnoses Acute pain of left shoulder Don Cardoso MD [address] [place] [address] Phone: tel: fax: [facility] [address] [place] [address] Phone: tel: Referral ID Status Reason Start Date Expiration Date Visits Requested Visits Authorized [id number] Authorized Specialty Services Required 10/22/2024 10/22/2025 1 1 * Imaging (Routine) - Closed Specialty Diagnoses / Procedures Referred By Kandi jacobo Referred To Contact Radiology Diagnoses Acute pain of left shoulder Procedures MR Shoulder w/o Contrast Left Dno Cardoso MD [address] [place] [address] Phone: tel: fax: [facility] [address] [place] [address] Phone: tel: fax: Referral ID Status Reason Start Date Expiration Date Visits Re quested Visits Authorized [id number] Closed 10/10/2024 10/10/2025 1 1 * Consultation (Routine) - Closed Specialty Diagnoses / Procedures Referred By Kandi jacobo Referred To Contact Physical Therapy Diagnoses Left wrist pain Acute pain of left shoulder Don Cardoso MD [address] [place] [address] Phone: tel: fax: [facility] [address] [place] [address] Phone: tel: fax: Referral ID Status Reason Start Date Expiration Date V isits Requested Visits Authorized [id number] Closed Specialty Services Required 10/08/2024 10/08/2025 1 1 Reason for Visit * Reason Comments Hypertension Encounter Details Date Type Department Care Team (Late st Contact Info) Description 10/08/2024 9:15 AM EST Office Visit [facility] [address] [place] [address] Don Cardoso MD [address] [place], [place] [phone] Primary hypertension (Primary Dx); Mixed hyperlipidemia; Left [...] (CMS/HCC) Pt was last seen by his icu specialist Dr Bernstein on July 12 2012. [...] (CMS/HCC) Pt was last seen by his icu specialist Dr Bernstein on July 12 2012. [...] about medication compliance, counseled about weight loss. * Result Encounter Note - Don Naik MD - 10/08/2024 9:15 AM EST Please contact patient to let him know his MRI shoulder showed: MR/MR shoulder LT wo con IMPRESSION: 1. 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 2. Mild degenerative change of the AC joint. 3. Findings consistent with a small partial tear of the subscapularis tendon. I have placed a referral to Ortho * Addendum Note - Don Naik MD - 10/08/2024 9:15 AM ESTAddended by: DON HEATH on: 10/10/2024 03:32 PM Modules accepted: Orders * Addendum Note - Don Naik MD - 10/08/2024 9:15 AM ESTAddended by: DON HEATH on: 10/22/2024 04:26 PM Modules accepted: Orders documented in this encounter Plan of Treatment Scheduled Orders Name Type Priority Associated Diagnoses Orde r Schedule PSA, Screen Lab Routine Preventative health care Ordered: 10/08/2024 Lipid Panel, Standard Lab Routine Mixed hyperlipidemia Ordered: 10/08/2024 Comprehensive Metabolic Panel Lab Routine Primary hypertension Ordered: 10/08/2024 CBC auto differential Lab Routine Left wrist pain Expected: 10/08/2024 (Approximate), Expires: 10/08/2025 Scheduled Referrals Name Type Priority Associated Diagnoses Order Schedule Referral to Physical Therapy Outpatient Referral Routine Left wrist pain Acute pain of left shoulder Expected: 10/08/2024 (Approximate), Expires: 10/08/2025 Referral to Orthopaedic Surgery Outpatient Referral Routine Acute pain of left shoulder Expected: 10/22/2024 (Approximate), Expires: 10/22/2025 documented as of this encounter Goals Goal Patient Goal Type Associated Problems Recent Progress Patient-Stated? Author Blood Pressure < 140/90 Blood Pressure Hypertension 140/82(2024 9:24 AM EST) No Mohsen Edwards, Deborah documented as of this encounter Procedures Procedure Name Priority Date/Time Associated Diagnosis Comments MR SHOULDER WO CONTRAST LEFT Routine 10/22/2024 7:26 AM EST Acute pain of left shoulder XR WRIST 3+ VIEWS LEFT Routine 10/08/2024 9:44 AM EST Left wrist pain XR SHOULDER 2+ VIEWS LEFT Routine 10/08/2024 9:44 AM EST Acute pain of left shoulder documented in this encounter Results * MR Shoulder w/o Contrast Left (10/22/2024 7:26 AM EST) Anatomical Region Laterality Modality Upper Extremities, Shoulder Left Magn etic Resonance 10/22/2024 7:26 AM EST Narrative 10/22/2024 9:08 AM EST ? [facility] ?[address] ?[place] [address] ? Magnetic Resonance Report ? Signed ? Patient: Andrae HuyElbert ?MR#: ?? [id number] ? : 1950 ?Acct:[id number] ? Age/Sex: 74 / M ?ADM Date: 10/22/24 ? Loc: HO.MRI ? Attending Dr: Don Garcia MD ? Ordering Physician: Don Garcia MD ?? Date of Service: 10/22/24 ?? Procedure(s): MR shoulder LT wo con ?? Accession Number(s): [id number] ? cc: Don Garcia MD ? EXAMINATION: MRI LEFT SHOULDER WITHOUT CONTRAST ? HISTORY: shoulder pain, x-ray suspicious for avascular necrosis ? COMPARISON: Correlation is made with plain films of the left shoulder ?? dated 10/08/2024. ? TECHNIQUE: ??Coronal T1, T2, and fat suppressed T2, axial fat suppressed ?? proton density, and sagittal T2 weighted MR images of the left shoulder ?? were obtained. ? FINDINGS: ?? There is curvilinear hypointensity in the superior portion of the ?? humeral head on both T1 and T2-weighted images corresponding to the ?? abnormality seen on plain film. Findings are compatible with old AVN. ?? There is no associated bone marrow edema or articular collapse. There ?? are small cystic changes involving the posterolateral aspect of the ?? humeral head. Bone marrow signal intensity is otherwise normal. The ?? glenohumeral joint is maintained. There is mild degenerative change of ?? the AC joint. There is no joint effusion. ? There is a small focus of increased T2 signal intensity within the ?? subscapularis tendon, compatible with a partial tear. The remaining ?? tendons of the rotator cuff are intact. There is no fluid in the ?? subdeltoid/subacromial bursa. ? The biceps tendon is normally located. The glenoid labrum is grossly ?? unremarkable in appearance. ? MR/MR shoulder LT wo con ?? IMPRESSION: ? 1. 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 ? 2. Mild degenerative change of the AC joint. ? 3. Findings consistent with a small partial tear of the subscapularis ?? tendon. ? Electronically signed by: ??Amilcar Jin MD ??10/22/2024 09:05 AM EST ?? RP ? Dictated By: ?Amilcar Jin MD ? Signed By: ?<Electronically signed by Amilcar Jin MD in OV> ?10/22/24 0905 ? DD/ 5 ? TD/TT: 10/22/24 0800 ? Block Cuber: ? Procedure Note Ahsan, Martha - 10/22/[address] [address] Magnetic Resonance Report Signed Patient: Elbert Cummings#: [id number] : 1950Acct:[id number] Age/Sex: 74 / MADM Date: 10/22/24 Loc: HO.MRI Attending Dr: Don Garcia MD Ordering Physician: Don Garcia MD Date of Service: 10/22/24 Procedure(s): MR shoulder LT wo con Accession Number(s): [id number] cc: Don Garcia MD EXAMINATION: MRI LEFT SHOULDER WITHOUT CONTRAST HISTORY: shoulder pain, x-ray suspicious for avascular necrosis COMPARISON: Correlation is made with plain films of the left shoulder dated 10/08/2024. TECHNIQUE: Coronal T1, T2, and fat suppressed T2, axial fat suppressed proton density, and sagittal T2 weighted MR images of the left shoulder were obtained. FINDINGS: There is curvilinear hypointensity in the superior portion of the humeral head on both T1 and T2-weighted images corresponding to the abnormality seen on plain film. Findings are compatible with old AVN. There is no associated bone marrow edema or articular collapse. There are small cystic changes involving the posterolateral aspect of the humeral head. Bone marrow signal intensity is otherwise normal. The glenohumeral joint is maintained. There is mild degenerative change of the AC joint. There is no joint effusion. There is a small focus of increased T2 signal intensity within the subscapularis tendon, compatible with a partial tear. The remaining tendons of the rotator cuff are intact. There is no fluid in the subdeltoid/subacromial bursa. The biceps tendon is normally located. The glenoid labrum is grossly unremarkable in appearance. MR/MR shoulder LT wo con IMPRESSION: 1. 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 2. Mild degenerative change of the AC joint. 3. Findings consistent with a small partial tear of the subscapularis tendon. Electronically signed by: Amilcar Jin MD 10/22/2024 09:05 AM EST Dictated By: Amilcar Jin MD Signed By: <Electronically signed by Amilcar Jin MD in OV> 10/22/24 0905 DD/ 0726 TD/TT: 10/22/24 0800 Block Cuber: Don Naik MD IMG MRI PROCEDURES Ed ited Result - Final * XR Shoulder 2+ Views Left (10/08/2024 9:44 AM EST) Anatomical Region Laterality Modality Upper Extremities, Shoulder Left Radi ographic Imaging 10/08/2024 9:44 AM EST Narrative 10/08/2024 11:46 AM EST ?[facility] ?[address] ?[place] [address] ?XRay Report ? Signed ? Patient: Andrae Sno,Elbert ?MR#: ?? [id number] ? : 1950 ?Acct:[id number] ? Age/Sex: 74 / M ?ADM Date: 10/08/24 ? Loc: HO.HHCX ? Attending Dr: Don Garcia MD ? Ordering Physician: Don Garcia MD ?? Date of Service: 10/08/24 ?? Procedure(s): XR shoulder LT min 2V ?? Accession Number(s): [id number] ? cc: Don Garcia MD ? EXAMINATION: ??XR SHOULDER 2 OR MORE VIEWS LEFT ? HISTORY: left shoulder pain ? COMPARISON: There are no prior studies available for comparison. ? FINDINGS: ? Four views of the left shoulder are submitted. ??There is a curvilinear ?? subchondral lucency in the humeral head with surrounding sclerosis, ?? suspicious for avascular necrosis. There is no evidence of articular ?? collapse. ??There is no fracture or dislocation. ??The glenohumeral and ?? acromioclavicular joint spaces are preserved. ??The soft tissues are ?? unremarkable. ? XR/XR shoulder LT min 2V ?? IMPRESSION: ? No new suspicious for avascular necrosis of the left humeral head. This ?? could be confirmed with MRI if indicated. ? Electronically signed by: ??Amilcar Jin MD ??10/08/2024 11:44 AM EST ?? RP ? Dictated By: ?Amilcar Jin MD ? Signed By: ?<Electronically signed by Amilcar Jin MD in OV> ?10/08/24 1144 ? DD/ 0944 ? TD/TT: 10/08/24 1000 ? Block Cuber: ? Procedure Note Donotuseinterpreter, Image - 10/08/2024 [facility] [address] [place] [address] XRay Report Signed Patient: Elbert CummingsMR#: [id number] : 1950Acct:[id number] Age/Sex: 74 / MADM Date: 10/08/24 Loc: HO.HHX Attending Dr: Don Garcia MD Ordering Physician: Don Garcia MD Date of Service: 10/08/24 Procedure(s): XR shoulder LT min 2V Accession Number(s): [id number] cc: Don Garcia MD EXAMINATION: XR SHOULDER 2 OR MORE VIEWS LEFT HISTORY: left shoulder pain COMPARISON: There are no prior studies available for comparison. FINDINGS: Four views of the left shoulder are submitted. There is a curvilinear subchondral lucency in the humeral head with surrounding sclerosis, suspicious for avascular necrosis. There is no evidence of articular collapse. There is no fracture or dislocation. The glenohumeral and acromioclavicular joint spaces are preserved. The soft tissues are unremarkable. XR/XR shoulder LT min 2V IMPRESSION: No new suspicious for avascular necrosis of the left humeral head. This could be confirmed with MRI if indicated. Electronically signed by: Amilcar Jin MD 10/08/2024 11:44 AM EST Dictated By: Amilcar Jin MD Signed By: <Electronically signed by Amilcar Jin MD in OV> 10/08/24 1144 DD/ 0944 TD/TT: 10/08/24 1000 Block Cuber: us Don Naik MD IMG XR PROCEDURES Carlos liz Result - Final * XR Wrist 3+ Views Left (10/08/2024 9:44 AM EST) Anatomical Region Laterality Modality Upper Extremities, Wrist Left Radiogr aphic Imaging 10/08/2024 9:44 AM EST Narrative 10/08/2024 10:58 AM EST ?[facility] ?[address] ?[place] [address] ?XRay Report ? Signed ? Patient: Abebe Son,Elbert ?MR#: ?? [id number] ? : 1950 ?Acct:[id number] ? Age/Sex: 74 / M ?ADM Date: 10/08/24 ? Loc: HO.HHCX ? Attending Dr: Don Garcia MD ? Ordering Physician: Don Garcia MD ?? Date of Service: 10/08/24 ?? Procedure(s): XR wrist LT min 3V ?? Accession Number(s): [id number] ? cc: Don Garcia MD ? EXAMINATION: ??XR WRIST 3 OR MORE VIEWS LEFT ? HISTORY: left wrist pain and swelling ? COMPARISON: Correlation is made with plain films of the left hand dated ?? 12/11/2014. ? FINDINGS: ? Four views of the left wrist are submitted. ??Osseous mineralization is ?? normal. ??There is no fracture or dislocation. ??The joint spaces are ?? preserved. ??The soft tissues are unremarkable. ? XR/XR wrist LT min 3V ?? IMPRESSION: ? Unremarkable examination of the left wrist. ? Electronically signed by: ??Amilcar Jin MD ??10/08/2024 10:55 AM EST ?? RP ? Dictated By: ?Amilcar Jin MD ? Signed By: ?<Electronically signed by Amilcar Jin MD in OV> ?10/08/24 1055 ? DD/ 0944 ? TD/TT: 10/08/24 1000 ? Block Cuber: ? Procedure Note Ahsan, Image - 10/08/[address] [address] XRay Report Signed Patient: Elbert CummingsMR#: [id number] : 1950Acct:[id number] Age/Sex: 74 / MADM Date: 10/08/24 Loc: HO.HHCX Attending Dr: Don Garcia MD Ordering Physician: Don Garcia MD Date of Service: 10/08/24 Procedure(s): XR wrist LT min 3V Accession Number(s): [id number] cc: Don Garcia MD EXAMINATION: XR WRIST 3 OR MORE VIEWS LEFT HISTORY: left wrist pain and swelling COMPARISON: Correlation is made with plain films of the left hand dated 12/11/2014. FINDINGS: Four views of the left wrist are submitted. Osseous mineralization is normal. There is no fracture or dislocation. The joint spaces are preserved. The soft tissues are unremarkable. XR/XR wrist LT min 3V IMPRESSION: Unremarkable examination of the left wrist. Electronically signed by: Amilcar Jin MD 10/08/2024 10:55 AM EST Dictated By: Amilcar Jin MD Signed By: <Electronically signed by Amilcar Jin MD in OV> 10/08/24 1055 DD/ 0944 TD/TT: 10/08/24 1000 Block Cuber: us Don Naik MD IMG XR PROCEDURES Carlos liz Result - Final documented in this encounter Visit Diagnoses Diagnosis Primary hypertension- Primary Unspecified essential hypertension Mixed hyperlipidemia Left wrist pain Pain in joint, forearm Acute pain of left shoulder Avascular necrosis of bone of hip, unspecified laterality (CMS/HCC) Preventative health care Routine general medical examination at a health care facility documented in this encounter Additional Health Concerns Assessment Noted Time PHQ-9 Depression Total Score: 1 10/08/19 9:12 AM EST documented as of this encounter Care Teams Cannon Fire Direction Specialist Relationship Specialty Start Date End Date Don Cardoso MD [address] [place] [address] PCP - General Internal Medicine 09/23/14 documented as of this encounter
--- OUTSIDE RECORDS SUMMARY | 2024-10-23 08:02 | XMS_ITS | Clinical Summary ---
Author Organization [employer] Address [address] [facility] 7t [place] [address] Care Team Providers Care Psych Assistant Name Role Phone Don Cardoso MD Primary [...] po daily with good results. PSA 02/28/2022 [facility] health care 10/10/2022 Assessment & Plan (10/08/2024 [...] EST): Pt was last seen by his central communications specialist Dr Bernstein on July 12 2012. [...] EST): Pt was last seen by his central communications specialist Dr Bernstein on July 12 2012. [...] EST): Pt was last seen by his central communications specialist Dr Bernstein on July 12 2012. [...] Encounters Date Type Department Care Team Description 10/22/2024 Telephone [facility] [place] [address] Pamela Mccord, RN Results 10/11/2024 Telephone [facility] [place] [address] Don Cardoso MD 10/11/2024 Telephone [facility] [place] [place] [address] Don Cardoso MD November Recall 10/10/2024 Orders Only [facility] [place] [address] Don Cardoso MD Left wrist pain (Primary Dx) 10/08/2024 9:15 AM EST Office Visit [facility] [place] [address] Don Cardoso MD Primary hypertension (Primary Dx); Mixed hyperlipidemia; Left wrist pain; Acute pain of left shoulder; Avascular necrosis of bone of hip, unspecified laterality ([facility]/HCC); Preventative health care 10/08/2024 Telephone [facility] [place] [address] oDn Cardoso MD 10/08/2024 Travel 09/26/2024 Patient Outreach [facility] [place], [place] [address] Don Cardoso MD Pre-visit Planning (SDOH screening was completed on 10/26/2023) 09/25/2024 Telephone [facility] [place] [address] Don Cardoso MD Chart Prep 08/28/2024 Telephone [facility] [place] [address] Don Cardoso MD Chart Prep 08/23/2024 Patient Outreach [facility] [place] [address] Don Cardoso MD Pre-visit Planning (SDOH screening was completed on 10/26/2023) from Last [...] 10/08/2025 10/08/2024 Depression Screening 10/08/2025 10/08/2024, 10/08/19 25 Tobacco Screening 10/08/2025 10/08/2024 DTaP/Tdap/Td Vaccines (2 - Td or Tdap) 03/17/2026 03/17/2016, 04/30/2013, 03/05/2003 Colonoscopy 03/31/2026 03/31/2016 Colorectal Cancer Screening 03/31/2026 Lipid Panel 01/22/2029 01/23/2024, 05/19, 08/01/2022, Additional history exists Pneumococcal Vaccine: 50+ Years Completed 12/28/2017, 07/02/2015, 06/11/2012 Zoster Vaccines [...] EST Acute pain of left shoulder XR SHOULDER 2+ VIEWS LEFT Routine 10/08/2024 9:44 AM EST Acute pain of left shoulder XR WRIST 3+ VIEWS LEFT Routine 10/08/2024 9:44 AM EST Left wrist pain HEMOGLOBIN A1C Routine 01/23/2024 8:47 AM EDT Prediabetes LIPID PANEL, STANDARD Routine 01/23/2024 8:47 AM EDT Mixed hyperlipidemia HEPATITIS C AB W/REFL TO HCV RNA, QN, PCR Routine 06/05/2023 8:16 AM EDT Preventative health care HM COLONOSCOPY Routine 03/31/2016 from Last 3 Months or Most Recently Relevant to Health Maintenance Results * MR Shoulder w/o Contrast Left (10/22/2024 7:26 AM EST) Anatomical Region Laterality Modality Upper Extremities, Shoulder Left Magn etic Resonance 10/22/2024 7:26 AM EST Narrative 10/22/2024 9:08 AM EST ? [facility] ?[address] ?[place], [place] [address] ? Magnetic Resonance Report ? Signed ? Patient: Andrae SonElbert ?MR#: ?? [id number] ? : 1950 ?Acct:[id number] ? Age/Sex: 74 / M ?ADM Date: 10/22/24 ? Loc: HO.MRI ? Attending Dr: Don Garcia MD ? Ordering Physician: Don Garcia MD ?? Date of Service: 10/22/24 ?? Procedure(s): MR shoulder LT wo con ?? Accession Number(s): [id number] ? cc: Don Garcia MD ? EXAMINATION: [...] MD in OV> ?10/22/24 0905 ? DD/ 0726 ? TD/TT: 10/22/24 0800 ? Courtesy Bus Driver: ? Procedure Note Donbabatunderoslynter, Image - 10/22/2024 [place] [address] Magnetic Resonance Report Signed Patient: Elbert CummingsMR#: [id number] : 1950Acct:[id number] Age/Sex: 74 / MADM Date: 10/22/24 Loc: HO.MRI Attending Dr: Don Garcia MD Ordering Physician: Don Garcia MD Date of Service: 10/22/24 Procedure(s): MR shoulder LT wo con Accession Number(s): [id number] cc: Don Garcia MD EXAMINATION: MRI LEFT [...] 10/22/24 0905 DD/ 0726 TD/TT: 10/22/24 0800 Courtesy Bus Driver: Don Naik MD IMG MRI PROCEDURES Ed ited Result - Final * XR Wrist 3+ Views Left (10/08/2024 9:44 AM EST) Anatomical Region Laterality Modality Upper Extremities, Wrist Left Radiogr aphic Imaging 10/08/2024 9:44 AM EST Narrative 10/08/2024 10:58 AM EST ?[facility] ?[address] ?[place] [address] ?XRay Report ? Signed ? Patient: Andrae Son,Elbert ?MR#: ?? [id number] ? : 1950 ?Acct:[id number] ? Age/Sex: 74 / M ?ADM Date: 01/21/25 ? Loc: HO.HHCX ? Attending Dr: Don Garcia MD ? Ordering Physician: Don Garcia MD ?? Date of Service: 10/08/24 ?? Procedure(s): XR wrist LT min 3V ?? Accession Number(s): [id number] ? cc: Don Garcia MD ? EXAMINATION: [...] DD/ 0944 ? TD/TT: 10/08/24 1000 ? Courtesy Bus Driver: ? Procedure Note Ahsan, Image - 10/08/2024 [place] [address] XRay Report Signed Patient: Elbert CummingsMR#: [id number] : 1950Acct:[id number] Age/Sex: 74 / MADM Date: 10/08/24 Loc: HO.HHCX Attending Dr: Don Garcia MD Ordering Physician: Don Garcia MD Date of Service: 10/08/24 Procedure(s): XR wrist LT min 3V Accession Number(s): [id number] cc: Don Garcia MD EXAMINATION: XR WRIST [...] Amilcar Jin MD 10/08/2024 10:55 AM EST RP Dictated By: Amilcar Jin MD Signed By: <Electronically signed by Amilcar Jin MD in OV> 10/08/24 1055 DD/ 0944 TD/TT: 10/08/24 1000 Courtesy Bus Driver: us oDn Naik MD IMG XR PROCEDURES Carlos liz Result - Final * XR Shoulder 2+ Views Left (10/08/2024 9:44 AM EST) Anatomical Region Laterality Modality Upper Extremities, Shoulder Left Radi ographic Imaging 10/08/2024 9:44 AM EST Narrative 10/08/2024 11:46 AM EST ?[facility] ?[address] ?[place] [address] ?XRay Report ? Signed ? Patient: Elbert Cummings ?MR#: ?? [id number] ? : 1950 ?Acct:[id number] ? Age/Sex: 74 / M ?ADM Date: 10/08/24 ? Loc: HO.HHCX ? Attending Dr: Don Garcia MD ? Ordering Physician: Don Garcia MD ?? Date of Service: 10/08/24 ?? Procedure(s): XR shoulder LT min 2V ?? Accession Number(s): [id number] ? cc: Don Garcia MD ? EXAMINATION: [...] signed by Amilcar Jin MD in OV> ?10/08/241143 ? DD/ 0944 ? TD/TT: 10/08/24 1000 ? Courtesy Bus Driver: ? Procedure Note Donarunter, Image - 10/08/[address] [address] XRay Report Signed Patient: Elbert CummingsMR#: [id number] : 1950Acct:[id number] Age/Sex: 74 / MADM Date: 10/08/24 Loc: HO.HHCX Attending Dr: Don Garcia MD Ordering Physician: Don Garcia MD Date of Service: 10/08/24 Procedure(s): XR shoulder LT min 2V Accession Number(s): [id number] cc: Don Garcia MD EXAMINATION: XR SHOULDER [...] 10/08/24 1144 DD/ 0944 TD/TT: 10/08/24 1000 Courtesy Bus Driver: us Don Naik MD IMG XR PROCEDURES Carlos liz Result - Final * Hemoglobin A1c (01/23/2024 8:47 AM EDT) Hemoglobin A1c 6.0 <6.0 % [facility] Comment:Hemoglobin A1C Refer ence Range Adults: 4.8 - 6.0 % Non diabetic: < 6.0 % Goal: < 7.0 %Additional Action Suggested: > 8.0 %Note: Hemoglobin A1c results are invalid for patients with abnormal amounts of HbF. Blood transfusions may impact the HbA1c concentration in the patient sample. Estimated Average Glucose 126 mg/dL [facility] Comment:eAG = Estimated ave rage glucose which is %A1C expressed asaverage glucose, using the formula of the O6B-[id number] Glucose study (ADAG), Diabetes Care, Vol.31,#8,Apr. 2007 Blood Venous blood specimen / Unknown 01/23/2024 8:47 AM EDT 01/23/2024 11:39 AM EDT us Mohsen Edwards PharmD LAB BLOOD ORDERABLES Augustina l Result [facility] [address] [place] [phone] * (ABNORMAL) Lipid Panel, Standard (01/23/2024 8:47 AM EDT) Triglycerides 102 <150 mg/dL [facility] Comment:Desirable Triglyceri de: less than 150 mg/dLBorderline High Triglyceride 150-199 mg/dLHigh Triglyceride: 200-499 mg/dLVery High Triglyceride: greater than or equal to 5OO mg/dL Cholesterol 215(H) <200 mg/dL [facility] Comment:Desirable Cholestero l: less than 200 mg/dLBorderline High Cholesterol: 200-239 mg/dLHigh Cholesterol: greater than 239 mg/dL LDL Cholesterol Calculated 122(H) <100 mg/dL [facility] Comment:Desirable LDL: less than 100 mg/dLNear Optimal/Above Optimal LDL: 110- 129 mg/dLBorderline High LDL: 130-159 mg/dLHigh LDL: 160-189 mg/dLVery High LDL: greater than or equal to 190 mg/dL HDL Cholesterol 73 >40 mg/dL [facility] Comment:Desirable HDL: great er than 40 mg/dL Note: This HDL assay may give artificially low results in patients with liver disease. Blood Venous blood specimen / Unknown 01/23/2024 8:47 AM EDT 01/23/2024 11:41 AM EDT Mohsen FerrariD LAB BLOOD ORDERABLES Augustina l Result Performing Organization Address [place] Co de Phone Number [facility] [address] [place] [phone] * Hepatitis C Antibody with Reflex to HCV, RNA, Quantitative, Real-Time PCR (06/05/2023 8:16 AM EDT) Hepatitis C Antibody Nonreactive Nonreactive [facility] Comment:Antibodies to HCV no t detected; does not exclude early acuteHCV infection. Blood Venous blood specimen / Unknown 06/05/2023 8:16 AM EDT 06/05/2023 11:03 AM EDT Don Naik MD LAB BLOOD ORDERABLES Final Result Performing Organization Address [place]/ZIP Co de Phone Number [facility] [address] [place] [phone] * Hm Colonoscopy (03/31/2016) Colonoscopy Normal Normal 03/31/2016 Tonya Raza - 03/31/2016 10:36 AM EDT Recommended 10 year follow up ( see scanned notes) us Historical Provider HEALTH MAINTENANCE Edited Result - Final from Last 3 Months or Most Recently Relevant to Health Maintenance Insurance [facility] Care Teams Psych Assistant Relationship Specialty Start Date End Date Don Cardoso MD [address] [place] [phone] PCP - General Internal Medicine 09/23/14
--- OUTSIDE RECORDS SUMMARY | 2024-10-23 08:02 | XMS_ITS | Encounter Summary ---
Author Organization [employer] Address [address] [facility] 7t [place] [address] Care Team Providers Care Therapeutic Radiologist Name Role Phone Don Cardoso MD Primary Care Provide r Reason for Visit * Reason Onset Date Comments November Recall 10/11/2024 Encounter Details Date Type Department Care Team ([facility] st Contact Info) Description 10/11/2024 Telephone [facility] [address] [place] [address] Don Cardoso MD [address] [place] [address] November Recall Social History Tobacco Use Types Packs/Day Years [...] Telephone Encounter - Rona Sierra MA - 10/11/2024 9:28 AM EST T/C- Waste Transportation Technician Left Voice Mail to return call to schedule an appointment. Recall letter sent. Appointment: Follow Up Note: 2 mo f/u Month: November With: Steve Please schedule appointment if Patient calls Back. documented in this encounter Plan of Treatment [...] documented as of this encounter Care Teams Therapeutic Radiologist Relationship Specialty Start Date End Date Don Cardoso MD [address] [place] [phone] PCP - General Internal Medicine 09/23/14 documented as of this encounter
--- OUTSIDE RECORDS SUMMARY | 2024-10-23 08:02 | XMS_ITS | Encounter Summary ---
Author Organization [employer] [facility] Address [address] [place] [address] 7t [place] [address] Care Team Providers Care Chief Development Officer Name Role Phone Don Cardoso MD Primary Care Provide r Encounter Details Date Type Department Care Team (Late st Contact Info) Description 08/19/2022 Orders Only [facility] [address] [place] [address] Don Cardoso MD [address] [place] [address] Avascular necrosis of bones of both hips [...] Primary documented in this encounter Care Teams Chief Development Officer Relationship Specialty Start Date End Date Don Cardoso MD [address] [place] [address] PCP - General Internal Medicine 09/23/14 documented as of this encounter
--- OUTSIDE RECORDS SUMMARY | 2024-10-23 08:02 | XMS_ITS | Encounter Summary ---
Author Organization [employer] Address [address] [facility] [address] 7t [place] [address] Care Team Providers Care Certified Ethical Hacker Name Role Phone Don Cardoso MD Primary Care Provide r Encounter Details Date Type Department Care Team (Late st Contact Info) Description 10/08/2024 Telephone [facility] MED[facility]INE [address] [place], [place] [phone] Don Cardoso MD [address] [place], [place] [phone] Social History Tobacco Use Types Packs/Day Years [...] documented as of this encounter Care Teams Certified Ethical Hacker Relationship Specialty Start Date End Date Don Cardoso MD [address] [place] [address] PCP - General Internal Medicine 09/23/14 documented as of this encounter
--- OUTSIDE RECORDS SUMMARY | 2024-10-23 08:02 | XMS_ITS | Encounter Summary ---
Author Organization [employer] Address [address] [facility] 7t [place] [address] Care Team Providers Care Customer Services Supervisor Name Role Phone Don Cardoso MD [...] documented as of this encounter Care Teams Customer Services Supervisor Relationship Specialty Start Date End Date Don Cardoso MD [address] [place] [address] PCP - General Internal Medicine 09/23/14 documented as of this encounter
--- OUTSIDE RECORDS SUMMARY | 2024-10-23 08:02 | XMS_ITS | Encounter Summary ---
Author Organization [employer] Address [address] [facility] 7t [place] [address] Care Team Providers Care Industrial Sweeper Cleaner Name Role Phone Don Cardoso MD Primary Care Provide r Reason for Visit * Reason Onset Date Comments Chart Prep 09/25/2024 Encounter Details Date Type Department Care Team ([facility] st Contact Info) Description 09/25/2024 Telephone [facility]INE [address] [place] [address] Don Cardoso MD [address] [place] [address] Chart Prep Social History Tobacco Use Types [...] documented as of this encounter Care Teams Industrial Sweeper Cleaner Relationship Specialty Start Date End Date Don Cardoso MD [address] [place] [phone] PCP - General Internal Medicine 09/23/14 documented as of this encounter
--- OUTSIDE RECORDS SUMMARY | 2024-10-23 08:02 | XMS_ITS | Encounter Summary ---
Author Organization [employer] Address [address] [facility] 7t [place] [address] Care Team Providers Care Turn Out Worker Name Role Phone Don Cardoso MD Primary Care Provide r Reason for Visit * Reason Onset Date Comments Results 10/22/2024 Encounter Details Date Type Department Care Team ([facility] st Contact Info) Description 10/22/2024 Telephone [facility]INE [address] [place] [address] Pamela Mccord, RN [address] [place] [address] Results Social History Tobacco Use Types Packs/Day Years [...] encounter Miscellaneous Notes * Telephone Encounter - Pamela Mccord RN - 10/22/2024 4:31 PM EST T/C placed to pt re below imaging results and POC. Informed of partial tear of tendon for which he has been referred to ortho. If he doesn't hear from their office within 2 weeks, let us know. Pt verbalized understanding and denied having any further questions or concerns at this time. * Telephone Encounter - Pamela Mccord RN - 10/22/2024 4:27 PM EST ----- Message from Don Naik MD sent at 10/22/2024 4:26 PM EST ----- Please contact patient to let him know his MRI shoulder showed: MR/MR shoulder LT wo con IMPRESSION: 1. 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 2. Mild degenerative change of the AC joint. 3. Findings consistent with a small partial tear of the subscapularis tendon. I have placed a referral to Ortho documented in this encounter Plan of Treatment [...] documented as of this encounter Care Teams Turn Out Worker Relationship Specialty Start Date End Date Don Cardoso MD [address] [place] [address] PCP - General Internal Medicine 09/23/14 documented as of this encounter
--- OUTSIDE RECORDS SUMMARY | 2024-10-23 08:02 | XMS_ITS | Encounter Summary ---
Author Organization [employer] Address [address] [facility] [address] 7[address] [place] [address] Care Team Providers Care Treasury Agent Name Role Phone Don Cardoso MD Primary Care Provide r Encounter Details Date Type Department Care Team (Late st Contact Info) Description 10/11/2024 Telephone [facility] MED[facility]INE [address] [place], [place] [phone] Don Cardoso MD [address] [place], [place] [phone] Social History Tobacco Use Types Packs/Day Years [...] encounter Miscellaneous Notes * Telephone Encounter - Corey Briceño RN - 10/11/2024 11:54 AM EST TC placed to patient to inform of provider message below. Patient informed that x-ray left shoulderhas an abnormality that needs to be further studies with an MRI and that provider placed the order for the scan. Patient informed he will get a call with an appt for the MRI. Patient verbalized understanding and agrees with plan. * Telephone Encounter - Corey Briceño RN - 10/11/2024 11:54 AM EST ----- Message from Don Naik MD sent at 10/10/2024 3:32 PM EST ----- Please contact patient to let him know his x-ray left shoulder has an abnormality that needs to be further studies with an MRI. I have placed an order documented in this encounter Plan of Treatment [...] documented as of this encounter Care Teams Treasury Agent Relationship Specialty Start Date End Date Don Cardoso MD [address] [place] [address] PCP - General Internal Medicine 09/23/14 documented as of this encounter
--- OUTSIDE RECORDS SUMMARY | 2024-10-23 08:02 | XMS_ITS | Encounter Summary ---
Author Organization [employer] Address [address] [facility] 7t [place] [address] Care Team Providers Care Metallurgical Specialist Name Role Phone Don Cardoso MD Primary Care Provide r Reason for Referral * Consultation (Routine) - Closed Specialty Diagnoses / Procedures Referred By Contac t Referred To Contact Occupational Therapy Diagnoses Left wrist pain Don Cardoso MD [address] [place] [address] Phone: tel: fax: [facility] Physical Therapy [address] [place] [address] Phone: tel: fax: Referral ID Status Reason Start Date Expiration Date V isits Requested Visits Authorized [id number] Closed Specialty Services Required 10/10/2024 10/10/2025 1 1 Encounter Details Date Type Department Care Team (Late st Contact Info) Description 10/10/2024 Orders Only [facility]INE [address] [place], [place] [phone] Don Cardoso MD [address] [place], [place] [phone] Left wrist pain (Primary Dx) Social History Tobacco Use Types [...] as of this encounter Plan of Treatment Scheduled Referrals Name Type Priority Associated Diagnoses Order Schedule Referral to Occupational Therapy Outpatient Referral Routine Left wrist pain Expected: 10/10/2024 (Approximate), Expires: 10/10/2025 documented as of this encounter Goals Goal Patient Goal Type Associated Problems Recent Progress Patient-Stated? Author Blood Pressure < 140/90 Blood Pressure Hypertension 140/82(2024 9:24 AM EST) No Mohsen Edwards, PharmD documented as of this encounter Visit Diagnoses Diagnosis Left wrist pain- Primary Pain in joint, forearm documented in this encounter Additional Health Concerns Assessment Noted Time PHQ-9 Depression Total Score: 1 10/08/19 25 9:12 AM EST documented as of this encounter Care Teams Metallurgical Specialist Relationship Specialty Start Date End Date Don Cardoso MD [address] [place] [phone] PCP - General Internal Medicine 09/23/14 documented as of this encounter
[2024-10-23 10:57] LABS: MANUAL DIFF FLAG NO
[2024-10-23 11:01] LABS: Basophils Percent Auto 0.4 % (0-2); Eosinophils Percent Auto 0.4 % (0-4); Hematocrit 39.9 % (42.0-52.0); Hemoglobin 13.2 g/dl (14.0-18.0); Imm Gran Abs Auto 0.02 X10*3/uL (0.00-0.03); Imm Gran Pct Auto 0.3 % (0.0-0.4); Lymphocytes Absolute Auto 1.6 X10*3/uL (1.2-4.9); Lymphocytes Percent Auto 23.6 % (20-40); Mean Corpuscular HGB Conc 33.1 g/dl (31.0-36.0); Mean Corpuscular Hemoglobin 29.9 pg (27.0-33.0); Mean Corpuscular Volume 90.5 fL (80.0-98.0); Mean Platelet Volume 10.4 fL (9.4-12.4); Monocytes Absolute Auto 0.6 X10*3/uL (0.1-1.2); Monocytes Percent Auto 8.2 % (2-11); Neutrophils Absolute Auto 4.6 x10*3/uL (2.0-8.3); Neutrophils Percent Auto 67.1 % (45-73); Platelet Count 301 X10*3/uL (160-400); Red Blood Count 4.41 X10*6/uL (4.60-5.80); Red Cell Distribution Width 13.8 % (11.0-16.0); White Blood Count 6.9 X10*3/uL (4.8-10.8)
[2024-10-23 11:25] LABS: Alanine Aminotransferase 27 U/L (0-40); Albumin Level 4.1 g/dL (3.5-5.0); Alkaline Phosphatase 64 U/L (39-117); Anion Gap 11 (12-20); Aspartate Amino Transferase 24 U/L (5-37); Bilirubin Total 0.4 mg/dL (0.0-1.0); Blood Urea Nitrogen 16 mg/dL (9-16); Calcium 9.1 mg/dL (8.4-10.2); Carbon Dioxide 26 mmol/L (22-29); Chloride 106 mmol/L (96-108); Cholesterol 201 mg/dL (<200); Estimated Glomerular Filt Rate > 60; Glucose Random 105 mg/dL (60-115); HDL Cholesterol 73 mg/dL (>40); LDL Cholesterol Calculated 108 mg/dL (<100); Potassium 3.9 mmol/L (3.3-5.1); Sodium 139 mmol/L (135-145); Total Protein 8.2 g/dL (6.5-8.0); Triglycerides 104 mg/dL (<150)
[2024-10-23 11:32] LABS: Prostate Specific Antigen Scr 2.73 ng/mL (<0.05-4.0)
== END 2024-10-23 08:01 | disposition home or self-care (01) ==
LOC: HO.HHCL 08:00
PROVIDERS: Visit Provider Internal Medicine
DX: Z00.00 Encounter for general adult medical examination without abnormal findings (principal); I10 Essential (primary) hypertension; E78.2 Mixed hyperlipidemia; M25.532 Pain in left wrist; Z12.5 Encounter for screening for malignant neoplasm of prostate
CPT/HCPCS: 36415; 80053; 80061; 84153; 85025

== ENCOUNTER 2025-01-14 07:45 | Outpatient (AMB) | payer MEDICARE, SELFPAY ==
--- NOTE | 2025-01-14 07:48 | A.OFFVIS_ITS ---
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 Describes his pain as sharp in nature. He denies any weakness. His symptoms have gotten worse over the last 5 years. He has not had a cortisone injection. He has tried Tylenol which gives him only mild relief. He has not tried an anti-inflammatory medicine. He wishes to hold off on surgery if at all possible. Clinical Psychology Professor Services: Clinical Psychology Professor Present (Janae ([id number])) Allergies No Known Allergies Allergy (Verified 01/14/25 07:52) Medication List - Last Reconciled 01/14/25 by Kaveh Arevalo MD amlodipine 5 mg PO DAILY amlodipine 2.5 mg PO DAILY enalapril maleate 20 mg PO DAILY metoprolol succinate ER 25 mg PO DAILY omeprazole 20 mg PO DAILY propylene glycol 0.6% (Systane Balance) 1 drp ophthalmic (eye) BID PRN terazosin 1 mg PO DAILY PFSH Social History (Updated 01/14/25 @ 07:52 by Beatriz Acevedo) Alcohol intake: never Patient Tobacco Use Status: Never used Tobacco Current occupational status: retired and disabled Current occupation: left hand dominant Physical Exam Const Other: Well-nourished well-developed very friendly male awake alert and oriented x3 in no acute distress Extrem Other: Bilateral upper extremity examination shows good capillary refill, no skin lesions noted, normal sensation light touch Left shoulder examination shows slightly decreased range of motion when compared to his right shoulder, 4+ out of 5 strength with supraspinatus testing, positive impingement signs, tenderness over his acromioclavicular joint, no instability Office Procedures AMB Joint Injection/Aspiration Joint Injection/Aspiration Primary Site: left shoulder Prep: site was prepped using aseptic technique Injected: 40 mg of, DepoMedrol and 1% plain lidocaine Procedure: The patient tolerated the procedure well Coding 32062 - Large joint Procedure code (CPT) selection complete Results Reviewed Results Reviewed: MRI of the patient's left shoulder shows severe acromioclavicular joint narrowing, a type 3 acromion, an area of avascular necrosis of the humeral head Assessment & Plan Assessment & Plan (1) Impingement syndrome of left shoulder: Code(s): M75.42 - Impingement syndrome of left shoulder Category: Medical Plan Mr. Andrae Son presents with left shoulder pain due to impingement syndrome, acromioclavicular joint arthritis and avascular necrosis of his humeral head. I had a lengthy discussion with the patient regarding the treatment options. He wishes to hold off on surgery for as long as possible. I agree with this plan. The risks and benefits of a left shoulder cortisone injection were discussed at length with the patient. The patient wished to proceed. He tolerated the injection well. He will continue with his home stretching program. I did give him a prescription for Celebrex. He will contact me prior to his follow-up appointment in 3 months should any questions or concerns arise. I spent 22 minutes in reviewing the patient's records and imaging studies, seeing the patient and documenting in the medical record. Orders: Orders AMB Joint Injection/Aspiration Today M75.42 - Impingement syndrome of left shoulder Medications: New celecoxib (Celebrex) 200 mg PO DAILY PRN 30 caps 3RF pain Coding Level of Care Code New Pt Level 3 (46309) Complex EM visit Add On G2211 Diagnoses Impingement syndrome of left shoulder M75.42 CPT Codes Coding - 11766 Large joint: 96020 - Large joint ([id number])
== END 2025-01-14 08:05 | disposition home or self-care (01) ==
LOC: HO.HOS 07:45
PROVIDERS: Visit Provider Orthopaedic Surgery
DX: M75.42 Impingement syndrome of left shoulder (principal)
CPT/HCPCS: 20610; 99203

== ENCOUNTER → 2025-01-14 07:45 | Outpatient (BNVA) | payer MEDICARE, SELFPAY | PROVIDERS: Visit Provider Orthopaedic Surgery | DX: M75.42 Impingement syndrome of left shoulder (principal) | CPT/HCPCS: 20610; 99202; J1010; J2003 ==